=== PATIENT | male | born 1995 | race Caucasian/White ===

== ENCOUNTER 2020-01-16 21:52 | Emergency (ER) | payer MEDICAID, SELFPAY ==
[2020-01-16 21:59] VITALS: BP 142/76; PULSE 75; RESP 16; TEMP 36.3; O2SAT 97; BMI 30.2
--- NOTE | 2020-01-16 23:58 | ED.NECK ---
HPI - Neck Pain/Injury General Chief Complaint: Neck Pain/Injury Stated Complaint: Neck Pain Time Seen by Provider: 01/16/20 23:57 Source: patient Mode of arrival: ambulatory Limitations: no limitations History of Present Illness HPI Narrative: Left-sided neck stiffness only when try to turn his neck to the right, this started since this a.m., patient declined any trauma, pain is aggravated by trying to move the neck to the right side, relieved by sitting still and keeping his head straight, no other associated symptoms in particular headache, or photophobia, or fever., patient declined any trauma, patient had similar episode of this before was diagnosed with torticollis. Related Data Previous Rx's Medication Instructions Recorded cyclobenzaprine 10 mg PO TID PRN #10 tab 01/17/20 ibuprofen 800 mg PO Q8H PRN #20 tab 01/17/20 Allergies Allergy/AdvReac Type Severity Reaction Status Date / Time No Known Allergies Allergy Verified 01/16/20 22:03 Review of Systems Review of Systems: All other systems are reviewed and are negative Constitutional: Reports as per HPI and Reports no additional constitutional complaints Eyes: Reports as per HPI and Reports no additional eye complaints Reports system reviewed and no additional complaints, except as documented Cardiovascular: Reports as per HPI and Reports no additional cardiovascular complaints Respiratory: Reports as per HPI and Reports no additional respiratory complaints Gastrointestinal: Reports as per HPI and Reports no additional gastrointestinal complaints Genitourinary: Reports no additional female genitourinary complaints Musculoskeletal: Reports no additional musculoskeletal complaints Skin/Breast: Reports system reviewed and no additional complaints, except as docu Psychiatric: Reports no additional psychiatric complaints Endocrine: Reports no additional endocrine complaints Hematologic/Lymphatic: Reports no additional hematologic/lymphatic complaints Allergic/Immunologic: Reports no additional allergic/immunologic complaints Reports system reviewed and no additional complaints, except as documented and Reports Abnormal speech present [facility] Social History Social History Alcohol intake: unknown Smoking Status: Unknown if ever smoked Use of substances other than those prescribed or required for medical reasons: Unknown Advance Directives: No Advance Directives Information Provided: No Physical Exam Vital Signs: Vital Signs: Last Vital Signs Temp 97.4 F 01/16/20 21:59 Pulse 75 01/16/20 21:59 Resp 16 01/16/20 21:59 BP 142/76 H 01/16/20 21:59 Pulse Ox 97 01/16/20 21:59 Body Mass Index 30.2 Vital signs have been reviewed as normal and appeared to be correct. Blood pressure in the high range. Heart rate normal. Respiration rate normal. Temperature normal. Oxygen saturation normal. Appearance: Alert. Oriented X3. No acute distress. Head: Normal external exam. Normocephalic. Atraumatic. No Dale signs noted. No raccoon eyes noted Eyes: PERRLA. EOMI. Conjunctiva and sclera normal. Eyelids normal. ENT: EAC normal. TM's Normal. Pharynx normal. Uvula midline. Moist mucous membranes. No trismus noted. No drooling noted. No muffled voice noted. Neck: Normal inspection. Left sternal mastoid muscle spasm. FROM. No adenopathy. Thyroid Normal. No meningeal signs. No neck mass noted. CVS: Normal heart rate and rhythm. Heart sound normal. No murmurs noted. Pulses normal throughout. Respiratory: No respiratory distress. Painless inspiration. Breath sounds normal. No wheezes/rales/rhonchi noted. Chest nontender. No accessory muscle usage noted or decreased air movement noted. Abdomen: Soft and nontender. Bowel sounds normal in all 4 quadrants. No distention noted. No organomegaly noted. No visible injury noted. Back: No CVA tenderness. Full range of motion noted. Skin: Skin warm and dry. Normal skin color. Normal skin turgor. No rashes/lesions/lacerations noted. Extremities: No lower extremity edema. Extremities exhibit normal range of motion. Extremities nontender. Neuro: Oriented X 3. No motor deficit. No sensory deficit. Reflexes normal. MDM - Neck Pain/Injury [facility] Narrative Medical decision making narrative: Assessment and plan. 24-year-old male came in with left side neck spasm and unable to look to the right side, patient declined any recent injury, patient had a history of torticollis in the past. Patient having no symptoms or exam to suggest meningitis. Patient was given muscle relaxants and NSAIDs in the ED with partial improvement. Will discharge the patient with muscle relaxant, NSAIDs, rest, heating pad, follow-up with PCP. Discharge Plan Discharge Clinical Impression: Torticollis Patient Disposition: Home, Self-Care Instructions: Spasmodic Torticollis (ED) Prescriptions: New cyclobenzaprine 10 mg tablet 10 mg PO TID PRN (Reason: muscle spasm) Qty: 10 RF: 0 ibuprofen 800 mg tablet 800 mg PO Q8H PRN (Reason: pain) Qty: 20 RF: 0 Referrals: Physician,Unknown [Primary Care Provider] - 2 days
[2020-01-17] MEDS: oxyCODONE HCl Immed Release 5 MG TABLET PO (00:42)
[2020-01-17] MEDS: Ibuprofen 600 MG TABLET PO (00:42)
[2020-01-17] MEDS: diazePAM 5 MG TABLET PO (00:43)
== END 2020-01-17 01:26 | disposition home or self-care (01) ==
PROVIDERS: Emergency Provider Emergency Medicine
DX: M43.6 Torticollis (principal); M54.2 Cervicalgia; Z79.899 Other long term (current) drug therapy
CPT/HCPCS: 99283; 99284

== ENCOUNTER 2021-08-17 11:13 | Outpatient (REF) | payer MEDICAID, SELFPAY ==
[2021-08-17 11:46] LABS: COVID-19 Test Negative (Negative); IDNOW Serial# 16C4AD1C
== END 2021-08-17 11:14 | disposition home or self-care (01) ==
LOC: HO.LAB 11:13
PROVIDERS: Visit Provider Internal Medicine
DX: Z20.822 Contact with and (suspected) exposure to COVID-19 (principal)
CPT/HCPCS: 87635; C9803

== ENCOUNTER 2022-08-10 10:27 | Outpatient (REF) | payer MEDICAID, SELFPAY ==
--- NOTE | ~2022-08-10 | XR_ITS ---
EXAMINATION: XR CHEST CLINICAL INFORMATION: Cough x3 days COMPARISON: None available. TECHNIQUE: 2 views of the chest were obtained. FINDINGS: No significant abnormality is noted involving the heart, lungs, mediastinum, bony thorax or soft tissues. XR/XR chest 2V IMPRESSION: Unremarkable chest examination.
== END 2022-08-10 10:28 | disposition home or self-care (01) ==
LOC: HO.HHCX 10:27
PROVIDERS: Visit Provider Emergency Medicine
DX: R68.89 Other general symptoms and signs (principal)
CPT/HCPCS: 71046

== ENCOUNTER 2022-11-08 10:14 | Outpatient (REF) | payer MEDICAID, SELFPAY ==
--- NOTE | ~2022-11-08 | XR_ITS ---
EXAMINATION: XR LUMBOSACRAL SPINE CLINICAL INFORMATION: Neck pain. COMPARISON: None available. TECHNIQUE: Three views of the lumbosacral spine. FINDINGS: The vertebral bodies and posterior elements appear unremarkable. Mild disc space narrowing at L4-L5 and L5-S1. Vertebral alignment appears unremarkable. The paraspinal soft tissues appear unremarkable. XR/XR lumbar spine 2-3V IMPRESSION: Mild disc space narrowing at L4-L5 and L5-S1.
[2022-11-08 11:30] LABS: MANUAL DIFF FLAG NO
[2022-11-08 11:48] LABS: Basophils Percent Auto 0.4 % (0-2); Eosinophils Absolute Auto 0.1 X10*3/uL (0.0-0.4); Eosinophils Percent Auto 1.1 % (0-4); Hematocrit 43.8 % (42.0-52.0); Hemoglobin 14.2 g/dl (14.0-18.0); Imm Gran Abs Auto 0.02 X10*3/uL (0.00-0.03); Imm Gran Pct Auto 0.4 % (0.0-0.4); Lymphocytes Absolute Auto 1.9 X10*3/uL (1.2-4.9); Lymphocytes Percent Auto 34.6 % (20-40); Mean Corpuscular HGB Conc 32.4 g/dl (31.0-36.0); Mean Corpuscular Volume 83.4 fL (80.0-98.0); Mean Platelet Volume 12.4 fL (9.4-12.4); Monocytes Absolute Auto 0.4 X10*3/uL (0.1-1.2); Monocytes Percent Auto 8.1 % (2-11); Neutrophils Percent Auto 55.4 % (45-73); Platelet Count 176 X10*3/uL (160-400); Red Blood Count 5.25 X10*6/uL (4.60-5.80); Red Cell Distribution Width 12.6 % (11.0-16.0); White Blood Count 5.4 X10*3/uL (4.8-10.8)
[2022-11-08 12:06] LABS: Estimated Average Glucose 91 mg/dL; Hemoglobin A1c % 4.8 % (<6.0)
[2022-11-08 12:24] LABS: Alanine Aminotransferase 40 U/L (0-40); Albumin Level 4.4 g/dL (3.5-5.0); Alkaline Phosphatase 78 U/L (39-117); Anion Gap 11 (12-20); Aspartate Amino Transferase 24 U/L (5-37); Bilirubin Direct 0.2 mg/dL (0.0-0.5); Bilirubin Total 0.3 mg/dL (0.0-1.0); Blood Urea Nitrogen 17 mg/dL (9-16); Calcium 9.4 mg/dL (8.4-10.2); Carbon Dioxide 27 mmol/L (22-29); Chloride 108 mmol/L (96-108); Cholesterol 144 mg/dL (<200); Estimated Glomerular Filt Rate > 60; Glucose Random 83 mg/dL (60-115); HDL Cholesterol 40 mg/dL (>40); LDL Cholesterol Calculated 89 mg/dL (<100); Potassium 4.6 mmol/L (3.3-5.1); Sodium 141 mmol/L (135-145); Total Protein 7.1 g/dL (6.5-8.0); Triglycerides 75 mg/dL (<150)
[2022-11-08 12:41] LABS: TSH reflex Free T4 1.82 uIU/mL (0.32-4.0)
[2022-11-09 04:11] LABS: HIV AB/AG Nonreactive (Nonreactive); HIV Num 1 0.06 S/CO (0.00-0.99)
[2022-11-09 04:15] LABS: ~HepC Num1 0.07 S/CO (0.00-0.79); ~Hepatitis C Antibody Nonreactive (Nonreactive)
== END 2022-11-08 10:15 | disposition home or self-care (01) ==
LOC: HO.HHCL 10:14
PROVIDERS: Visit Provider Internal Medicine
DX: Z00.00 Encounter for general adult medical examination without abnormal findings (principal); F41.8 Other specified anxiety disorders
CPT/HCPCS: 36415; 72100; 80048; 80061; 80076; 83036; 84443; 85025; 86803; 87389

== ENCOUNTER 2023-01-12 12:56 | Outpatient (AMB) | payer MEDICAID, SELFPAY ==
--- NOTE | 2023-01-12 12:57 | A.OFFVIS_ITS ---
Intake Vital Signs 01/12/23 13:00 BP 126/68 Blood Pressure Location Lt radial Position Sitting Pulse 74 Pulse Source Pulse Oximeter Pulse Oximetry (%) 99 Oxygen Delivery Method Room Air Intake Visit Reasons: mat intake Intake Note: the patient presents for a mat intake Airplane Inspector Required: No Allergies No Known Allergies Allergy (Verified 01/12/23 13:01) Do you need a note to return to daycare/school/sports/work: No HPI mat intake HPI Details Pt presented as a referral from [facility] after a positive urine drug screen. Pt was positive for marijuana and as a requirement for his job he needs to complete rehab . Reports he works for [employer]. Only smokes to relieve anxiety Reports his use has been only on the weekends, denies any other substance use. 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 Pt is stably housed with dependable transportation. Reports he has a good support system. Has never needed addiction treatment, carries no BH diagnosis, has no BH pro viders, and has never been psychiatrically hospitalized. No SI/HI? or self injurious behaviour. NKA Pcp is through [facility] where he was last seen by his provider in September of this year. PMH only significant for seasonal asthma which is well controlled with a PRN albuterol inhaler. Denies legal history past or present of incarceration, probation, or pending cases. [facility] Social History Alcohol intake: unknown Review of Systems Const Reports as per HPI Physical Exam Vital Signs: Last Vital Signs Pulse 74 01/12/23 13:00 BP 126/68 01/12/23 13:00 Pulse Ox 99 01/12/23 13:00 Oxygen Delivery Method Room Air 01/12/23 13:00 Const General: cooperative and healthy appearing Resp Effort & Inspection: normal respiratory effort Skin General skin exam: no rashes or lesions noted Psych Appearance: grossly normal and well kempt Mental Status: mental status grossly normal Speech and movement: Normal speech and movement present Attitude: cooperative Thought process: Normal thought process present Assessment & Plan Assessment & Plan (1) Marijuana smoker in remission: Comment: Follow up with work provided substance use screening. No further visits needed at this time. Encouraged to call clinic if questions or concerns arise. Code(s): F12.21 - Cannabis dependence, in remission Coding Level of Care Code New Pt Level 4 (52149) Diagnoses Marijuana smoker in remission F12.21
[2023-01-12 13:00] VITALS: BP 126/68; PULSE 74; O2SAT 99
== END 2023-01-12 13:55 | disposition home or self-care (01) ==
PROVIDERS: Visit Provider Nurse Practitioner Family
DX: F12.21 Cannabis dependence, in remission (principal)
CPT/HCPCS: 99204

== ENCOUNTER → 2023-01-12 12:56 | Outpatient (BNVA) | payer OTHER, SELFPAY | PROVIDERS: Visit Provider Nurse Practitioner Psychiatric/Mental Health | DX: F12.21 Cannabis dependence, in remission (principal) | CPT/HCPCS: 99202 ==

== ENCOUNTER 2024-12-08 17:45 | Emergency (ER) | payer BC, SELFPAY ==
--- NOTE | ~2024-12-08 | XR_ITS ---
CLINICAL HISTORY: Low back pain status post heavy lifting 3 views lumbar spine Comparison: CR/NV/SR - XR LUMBAR SPINE 2-3 VIEWS - 11/08/22 11:03 EDT Findings: Loss of normal lumbar lordosis. No acute fractures or dislocation. No significant degenerative change. IMPRESSION: No acute findings. This document has been electronically signed by: Nathan Medrano MD on 12/08/2024 18:44:37
--- NOTE | 2024-12-08 17:48 | ED_ITS ---
HPI - General Adult General Chief complaint: Back Pain/Injury Stated complaint: lower back pain Time Seen by Provider: 12/08/24 18:36 Source: patient Mode of arrival: ambulatory Limitations: no limitations History of Present Illness ED Provider: Carolann French PA-C HPI narrative: This is a 29 year old male that presents for evaluation of low back pain. 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 He feels relief when he is laying down and has increased pain with standing or lifting his legs. He is still getting the shock feeling down his legs on and off. He denies any numbness or tingling in his groin or legs. He denies any difficulty urinating or passing stool. He denies weakness in his legs. He does not return to work until Tuesday because he is off for the holiday . Related Data Previous Rx's ?Medication ?Instructions ?Recorded cyclobenzaprine 10 mg tablet 10 mg PO TID PRN muscle s pasm #10 01/17/20 tabs ibuprofen 800 mg tablet 800 mg PO Q8H PRN pain #20 t abs 01/17/20 cyclobenzaprine 5 mg tablet 5 mg PO TID PRN low back p ain 7 12/08/24 days #21 tabs naproxen 500 mg tablet 500 mg PO BID 7 days #14 tab s 12/08/24 Allergies Allergy/AdvReac Type Severity Reaction Status Date / Time No Known Allergies Allergy Verified 12/08/24 17:50 Review of Systems Constitutional: Constitutional: Reports as per HPI Eyes: Eyes: Reports as per HPI ENT: Reports as per HPI Cardiovascular: Cardiovascular: Reports as per HPI Respiratory: Respiratory: Reports as per HPI Gastrointestinal: Gastrointestinal: Reports as per HPI Genitourinary: Genitourinary: Reports as per HPI Musculoskeletal: Musculoskeletal: Reports as per HPI Integumentary/Breasts: Skin/Breast: Reports as per HPI Neurologic: Reports as per HPI Psychiatric: Psychiatric: Reports as per HPI Endocrine: Endocrine: Reports as per HPI Hematologic/Lymphatic: Hematologic/Lymphatic: Reports as per HPI Allergic/Immunologic: Allergic/Immunologic: Reports as per HPI [facility] Past Medical History Attestation statement: The following information was validated with the patient. Source: old records reviewed and nursing notes reviewed Social History Social History Alcohol intake: unknown Advance Directives: No Advance Directives Information Provided: Yes Do you have a plan to hurt others: No Plan Physical Exam ED Vital Signs: Vital Signs - 24 hr 12/08/24 17:49 12/08/24 19:17 Temperature 97.6 F 97.6 F Pulse Rate 72 72 Respiratory Rate 18 18 Blood Pressure 132/59 L 132/59 L Pulse Oximetry 99 99 Oxygen Delivery Method Room Air Room Air BMI result Body Mass Index 28.3 Const General: cooperative, no acute distress, alert and awake Nutritional Appearance: well nourished Orientation/consciousness: patient oriented x3 HENMT Head: Yes normal to inspection and Yes atraumatic Ears: hearing grossly normal bilaterally and external ears normal General nose exam: Normal external nose present, no nasal discharge noted and no epistaxis Face and sinus: Yes normal facial exam, No abrasion and No laceration Mouth: no drooling and no muffled voice Eyes General: appearance normal, both eyes and all related structures Periorbital: periorbital findings normal Eyelids: Yes eyelids normal Conjunctivae: conjunctivae normal Pupils: Equal, round and reactive pupils present EOM: EOMs intact bilaterally Neck Neck: Yes normal visual inspection and Yes full ROM Resp Effort & Inspection: normal respiratory effort and able to speak in complete sentences Back/Spine/Pelvis Back: No ecchymosis Skin General skin exam: no rashes or lesions noted Neuro General: patient oriented x3, gait normal, tone normal and moves all extremities Cranial nerves: Yes Equal, round and reactive pupils present Cognition (Neuro): normal cognition Gait exam (Neuro): Normal gait present Motor exam (neuro): 5/5 motor strength present throughout and Normal motor muscle tone present throughout Deep tendon reflexes (DTR's): Right patellar reflex intensity grade: 2+ and Left patellar reflex intensity grade: 2+ Extrem General: Yes normal to inspection, Yes full ROM and Yes capillary refill normal Right lower extremity: full ROM Left lower extremity: full ROM Psych Appearance: grossly normal Mental Status: mental status grossly normal Affect: normal affect Attitude: cooperative Thought process: Normal thought process present Thought content: Normal thought content present Insight: Good insight present (Psych) Course Course Course Narrative: This is a Rapid Medical Examination (RME) performed by Carolyn Tyler PA-C in triage. Full HPI, ROS, assessment and treatment plan per primary provider in the Main ED. Hx: 29 yo M here for eval of low back pain s/p heavy lifting yesterday. no back pain red flags. Plan: xrs Medications Administered Discontinued Medications Generic Name Dose Route Start Last Admin Trade Name Jonnathan PRN Reason Stop Dose Admin Cyclobenzaprine HCl 5 mg 12/08/24 18:57 12/08/24 19:13 Cyclobenzaprine Hcl 5 Mg Tablet PO 12/08/24 18:58 5 mg ONCE ONE Administration Ketorolac Tromethamine 15 mg 12/08/24 18:57 12/08/24 19:13 Ketorolac Tromethamine 15 Mg/Ml Vial IM 12/08/24 18:58 15 mg ONCE ONE Administration Medical Decision Making Medical Decision Making MDM Narrative: Patient is a 29 year old assigned male at with no reported medical history presenting to the emergency department today with low back pain. Patient's physical exam was as noted in the physical exam portion of this note. Patient's lumbar x-ray, ordered by the provider in triage, showed no acute process. I explained my physical exam findings as well as all test results to the patient . I answered all questions asked by the patient. I stressed the importance of the patient taking his medication as directed (either prescribed or as the over the counter packaging recommends). I stressed the importance of the patient following up with his primary care provider. I stressed the importance of the patient returning to the emergency department immediately if his symptoms were to worsen or if he were to develop any dizziness, shortness of breath, difficulty breathing, chest pain, blurry vision, loss of vision, nausea, vomiting, abdominal pain, fever, chills, back pain, or any other complaints. Patient verbalized agreement and understanding with this treatment plan and discharge. Differential Diagnosis Differential Diagnoses: The differential diagnosis associated with the presentation includes Lumbar strain Low back pain Admission/Observation Consideration of admission/observation: Escalation of care including admission/observation considered Patient would have been admitted to the hospital had his work up had any findings where hospital admission was appropriate and his clinical presentation warranted hospital admission. Independent Interpretation I performed an independent interpretation of an: Plain X-Ray Interpretation: My interpretation is in agreement with the radiologist's impression of this imaging study. Reason for Exam: Low back pain status post heavy lifting CLINICAL HISTORY: Low back pain status post heavy lifting 3 views lumbar spine Comparison: CR/WI/SR - XR LUMBAR SPINE 2-3 VIEWS - 11/08/22 11:03 EDT Findings: Loss of normal lumbar lordosis. No acute fractures or dislocation. No significant degenerative change. IMPRESSION: No acute findings. This document has been electronically signed by: Nathan Medrano MD on 12/08/2024 18:44:37 Dictated By: Nathan Medrano MD Signed By: Electronically signed by Nathan Medrano MD 12/08/24 0864 Radiology Impression Discussion of test interpretation with radiology: I have reviewed the radiologist's reading. Prescription Management I considered prescription management with: Pain Medication (patient prescribed pain medication) Discharge Plan Discharge Clinical Impression: Strain of lumbar region Patient Disposition: Home, Self-Care Instructions: Back Pain (ED) Additional Instructions: Your x-ray of the lumbar spine showed no acute process. Your pain is likely secondary to a strain / sprain. IF you are prescribed home medications and/or you are taking over the counter medications at home - it is very important you continue to do so as prescribed / directed unless told otherwise. Follow up with a primary care provider. Return to the emergency department immediately if your symptoms worsen or if you develop any numbness, tingling, dizziness, shortness of breath, difficulty breathing, chest pain, blurry vision, loss of vision, nausea, vomiting, abdominal pain, fever, chills, back pain, or any other complaints. If you do not have a primary care provider - call any of the below numbers to establish and follow up with a primary care provider. [facility] Primary Care ([place]) [phone] [place] [address] [place], [address] [facility] Primary Care ([address] [place]) [phone] [address] [facility], [address] [place], [address] [facility] Primary Care ([address] [place]) [phone] [place] [address], [address] [place], [address] [facility] Primary Care ([place]) [phone] [place] [address] [address] [place], [address] [facility] Family Medicine [phone] [address] [facility], [address] Please see the information below about our Patient Portal. If you are not yet enrolled in the [facility] Patient Portal, you will receive an enrollment email invitation following your visit to any [facility] setting. You may also self-enroll in the Patient Portal by visiting our website: [email or web address] The following information is required to access the Patient Portal: - Your [facility] Medical Record Number - Your personal home email address (must match what is in your electronic medical record, Registration staff can assist with this) - Name - Date of Capabilities of the Patient Portal: - Message some providers - View upcoming appointments - Access your health summary, medical history, and visit history - View current conditions and allergies - View procedure and lab results - View your medications, including guidelines, side effects, and precautions - Complete pre-appointment questionnaires requested by your provider - Ready summary reports of your office visits and procedures To access the Patient Portal Mobile [employer], follow these directions: - Search [place] in the [employer] Store or [employer] Store - Download the [employer] - Search for [facility] - Enter your login/password Prescriptions: New cyclobenzaprine 5 mg tablet 5 mg PO TID PRN (Reason: low back pain) 7 Days Qty: 21 0RF naproxen 500 mg tablet 500 mg PO BID 7 Days Qty: 14 0RF No Action cyclobenzaprine 10 mg tablet 10 mg PO TID PRN (Reason: muscle spasm) Qty: 10 0RF ibuprofen 800 mg tablet 800 mg PO Q8H PRN (Reason: pain) Qty: 20 0RF Interventions: ED Discharge Assessment Last Done: 12/08/24 19:17 Discharge Date/Time: 12/08/24 19:33 Print Language: Syriac
[2024-12-08 17:49] VITALS: BP 132/59; PULSE 72; RESP 18; TEMP 36.4; O2SAT 99; BMI 28.3
--- OUTSIDE RECORDS SUMMARY | 2024-12-08 18:42 | XMS_ITS | Encounter Summary ---
Author Organization [employer] Address [address] [place] [address] Care Team Providers Care Microbiology Instructor Name Role Phone Kylah Wadsworth MD Primary Care Provide r Reason for Visit * Reason Comments Med Refill Encounter Details Date Type Department Care Team ([facility] st Contact Info) Description 08/24/2022 Refill [facility] [address] [place], [place] [phone] Adalberto Montoya MD [address] [place] [address] Social History Tobacco Use Types Packs/Day Years Used Date Smoking Tobacco: Never Passive Smoke Exposure: Never Smokeless Tobacco: Never Sex and Gender Information Value Date Recorded Sex Assigned at Male 12/28/2021 10:34 AM EDT Legal Sex Male 10:34 AM EDT Gender Identity Male 12/28/2021 10:34 AM EDT Sexual Orientation Don't know 12/28/2021 10 :34 AM EDT COVID-19 Exposure Response Date Recorded In the last 10 days, have yo u been in contact with someone who was confirmed or suspected to have Coronavirus/COVID-19? No / Unsure 08/10/2022 8:50 AM EDT documented as of this encounter Plan of Treatment Not on file documented as of this encounter Visit Diagnoses Not on filedocumented in this encounter Care Teams Microbiology Instructor Relationship Specialty Start Date End Date Kylah Wadsworth MD [address], [place] [phone] PCP - General Family Medicine 11/29/17 documented as of this encounter
--- OUTSIDE RECORDS SUMMARY | 2024-12-08 18:42 | XMS_ITS | Clinical Summary ---
Author Organization [employer] Address [address] [place] [address] Care Team Providers Care Systems Support Specialist Name Role Phone Kylah Wadsworth MD Primary Care Provide r Allergies No known active allergies Medications acetaminophen (Tylenol) 500 MG tablet Take 2 tablets (1,000 mg) by mouth every 6 (six) hours if needed for moderate pain or fever for up to 25 doses. 50 tablet 3 Active Spacer/Aero-Hol ding Chambers (OptiChamber Anisha) misc 1 each every 4 (four) hours if needed (asthma). 1 each 3 Active hydrOXYzine HCl (Atarax) 25 MG tabletIndicatio ns:Anxiety with depression Take 1 tablet (25 mg) by mouth if needed at bedtime for itching. 30 tablet 3 Active Additional Information Patient not taking.Reported on 09/25/2024 pseudoephedrine (Sudafed) 30 MG tablet Take 1 tablet (30 mg) by mouth every 4 (four) hours if needed for congestion for up to 10 days. 30 tablet 3 Active Additional Information Patient not taking.Reported on 09/25/2024 sodium chloride (Sweetwater) 0.65 % nasal spray Administer 1 spray into each nostril if needed for congestion. 15 mL 1 5 03/12/19 26 Active Additional Information Patient not taking.Reported on 09/25/2024 ondansetron (Zofran) 4 MG tabletIndicatio ns:Nausea Take 1 tablet (4 mg) by mouth every 8 (eight) hours if needed for nausea or vomiting for up to 10 doses. 10 tablet 5 Active Additional Information Patient not taking.Reported on 09/25/2024 cetirizine (ZyrTEC) 10 MG tablet TAKE 1 TABLET BY MOUTH EVERY DAY 90 tablet 1 5 Active Additional Information Patient not taking.Reported on 09/25/2024 amitriptyline (Elavil) 10 MG tablet Take 1 tablet (10 mg) by mouth at bedtime. 30 tablet 5 Active Additional Information Patient not taking.Reported on 09/25/2024 SUMAtriptan (Imitrex) 25 MG tablet Take 1 tablet (25 mg) by mouth 1 (one) time if needed for migraine. May repeat dose once in 2 hours if no relief. Do not exceed 2 doses in 24 hours. 9 tablet Active Additional Information Patient not taking.Reported on 09/25/2024 albuterol 108 (90 Base) MCG/ACT inhaler Inhale 2 puffs every 6 (six) hours if needed for wheezing or shortness of breath. 18 g 1 5 09/26/19 26 Active Active Problems Problem Noted Date Diagnosed Date Torticollis 09/25/2024 Assessment & Plan (09/25/2024 10:08 PM EDT): Chem 2022 -Normal renal function Pt w torticollis of right side of neck ,normal neuro exam -warm compresses advised -tylenol prn and ibuprofen 600 mg Q8 h PRN for moderate to severe pain for a week -prescribed low dose muscle relaxant for few days -prior bedtime-explained to avoid ETOH,and to not drive or use heavy machinery after taking medication -referred to PT today given recurrence of symptoms, no indication for image from hx and exam at this time Left foot pain 09/25/2024 Assessment & Plan (09/25/2024 10:08 PM EDT): Left ankle pain pain in left foot w specific movements -specially with active dorsiflexion ,no swelling no erythema no increase skin temp -referred to PT today , if no improvement w it will need to consider to get image of foot -pt to f w PCP Cough in adult 03/12/2024 Assessment & Plan (03/12/2024 11:12 AM EST): -Negative influenza and COVID test -Supportive care recommended Chronic bilateral low back pain without sciatica 11/08/2022 Anxiety with depression 11/08/2022 Assessment & Plan (11/08/2022 10:03 AM EDT): Patient declines therapist for now Patient is open to try medications RTC 4 weeks televisit Health care maintenance 11/08/2022 Mild intermittent asthma with acute exacerbation 08/10/2022 Assessment & Plan (03/12/2024 11:07 AM EST): -He uses his asthma pump PRN but he rarely needs it. Obesity (BMI 30.0-34.9) 11/29/2017 Encounters Date Type Department Care Team Description 09/25/2024 10:40 AM EDT Office Visit [facility] [place] [address] Kylah Kraft MD Left foot pain (Primary Dx); Neck pain; Torticollis 09/25/2024 Travel from Last 3 Months Social History Tobacco Use Types Packs/Day Years Used Date Smoking Tobacco: Never Passive Smoke Exposure: Never Smokeless Tobacco: Never Tobacco Cessation:Counseling Given: Not Answered Depression Answer Date Recorded Patient Health Questionnaire-9 Score 15 11/08/2022 Housing Stability Answer Date Recorded What is your housing situation today? I have shaun martin 12/08/[address] you li ve. Do you have problems with any of the following? Pests such as bugs, ants, or mice 12/08/2022 Food Insecurity Answer Date Recorded Within the past 12 months, y ou worried that your food would run out before you got money to buy more: Never True 01/03/2023 Within the past 12 months,th e food you bought just didn't last and you didn't have enough money to get more: Never True 07/2022 Transportation Answer Date Recorded In the past 12 months, has l ack of transportation kept you from medical appts, meetings, work or from getting things needed for daily living? No 01/03/2023 Utilities Answer Date Recorded In the past 12 months, has t he electric, gas, oil or water company threatened to shut off services in your home? No 01/03/2023 Depression Answer Date Recorded Patient Health Questionnaire-2 Score 3 11/08/2022 Sex and Gender Information Value Date Recorded Sex Assigned at Male 12/28/2021 10:34 AM EDT Legal Sex Male 10:34 AM EDT Gender Identity Male 12/28/2021 10:34 AM EDT Sexual Orientation Don't know 12/28/2021 10 :34 AM EDT Last Filed Vital Signs Vital Sign Reading Time Taken Comments Blood Pressure 118/66 09/25/2024 10:11 AM EDT Pulse 54 09/25/2024 10:11 AM EDT Temperature 36.2 C (97.1 F) 09/25/2024 10:11 AM EDT Respiratory Rate 20 09/25/2024 10:11 AM EDT Oxygen Saturation 99% 09/25/2024 10:11 AM EDT Inhaled Oxygen Concentration - - Weight 83.5 kg (184 lb) 09/25/2024 10:11 AM EDT Height 167.6 cm (5' 6 ) 09/25/2024 10:11 AM EDT Body Mass Index 29.7 09/25/2024 10:11 AM EDT Plan of Treatment Health Maintenance Due Date Last Done Comments Disability Screening 1997 Alcohol/Substance Use Screening 2009 Family Planning (PISQ) 2012 HPV Vaccines (1 - Male 3-dos e series) 2012 DTaP/Tdap/Td Vaccines (1 - Tdap) 2016 Hepatitis B Vaccines (1 of 3 - 19+ 3-dose series) 2016 Pneumococcal Vaccine: Pediatrics (0 to 5 Years) and At-Risk Patients (6 to 49) Years (1 of 2 - PCV) 2016 Depression Monitoring 05/09/2023 11/08/2022 , 11/08/2022 SDOH Screening 10/27/2023 10/26/2022 COVID-19 Vaccine (1 - 2023-2 5 season) 2024 Influenza Vaccine (#1) 2024 Tobacco Screening 09/25/2025 09/25/2024 Zoster Vaccines (1 of 2) 09/16/2047 RSV Patients and Patients Aged 60 years or older (1 - 1-dose 75+ series) 2072 HIV Screening Completed 11/08/2022 Hepatitis C Screening Completed 11/08/2022 HIB Vaccines Aged Out No longer eligi ble based on patient's age to complete this topic Hepatitis A Vaccines Aged Out No long er eligible based on patient's age to complete this topic IPV Vaccines Aged Out No longer eligi ble based on patient's age to complete this topic Meningococcal B Vaccine Aged Out No l onger eligible based on patient's age to complete this topic Meningococcal Vaccine Aged Out No olivier kevin eligible based on patient's age to complete this topic RSV under 20 months Aged Out No longe r eligible based on patient's age to complete this topic Rotavirus Vaccines Aged Out No longer eligible based on patient's age to complete this topic Procedures Procedure Name Priority Date/Time Associated Diagnosis Comments HEPATITIS C AB W/REFL TO HCV RNA, QN, PCR Routine 11/08/2022 10:23 AM EDT Health care maintenance HIV ANTIBODY/ANTIGEN ([place] [facility]) Routine 11/08/2022 10:23 AM EDT from Last 3 Months or Most Recently Relevant to Health Maintenance Results * HIV Ab/Ag ([place] [facility]) (11/08/2022 10:23 AM EDT) Pathologist [facility] HIV AB/AG Nonreactive Nonreactive [facility] Comment:HIV-1 p24 Ag and/or HIV-1/HIV-2 Ab not detected.A test result that is nonreactive does not exclude thepossibility of exposure to or infection with HIV-1 and/orHIV-2. Nonreactive results in this assay for individualswith prior exposure to HIV-1 and/or HIV-2 may be due toantigen and antibody levels that are below the limit ofdetection of this assay.The localbacon HIV Ag/Ab Combo assay result andsupplemental assay results should be interpreted inconjunction with the patient's clinical presentation,history and other laboratory results. If the results areinconsistent with clinical evidence, additional testing issuggested to confirm the result. 11/08/2022 10:2 3 AM EDT 11/08/2022 11:24 AM EDT us Kylah Dutta MD LAB BLOOD ORDERABLES Final Result Performing Organization Address [facility] Co de Phone Number [facility] [address] [place] [phone] * Hepatitis C Antibody with Reflex to HCV, RNA, Quantitative, Real-Time PCR (11/08/2022 10:23 AM EDT) Hepatitis C Antibody Nonreactive Nonreactive [facility] Comment:Antibodies to HCV no t detected; does not exclude early acuteHCV infection. Blood Venous blood specimen / Unknown 11/08/2022 10:23 AM EDT 11/08/2022 11:24 AM EDT us Kylah Dutta MD LAB BLOOD ORDERABLES Final Result Performing Organization Address [facility] Co de Phone Number [facility] [address] [place] [phone] from Last 3 Months or Most Recently Relevant to Health Maintenance Insurance [facility] [employer] HMO Care Teams Systems Support Specialist Relationship Specialty Start Date End Date Kylah Wadsworth MD [address] [place] [address] PCP - General Family Medicine 11/29/17
[2024-12-08 19:17] VITALS: BP 132/59; PULSE 72; RESP 18; TEMP 36.4; O2SAT 99
== END 2024-12-08 19:33 | disposition home or self-care (01) ==
PROVIDERS: Emergency Provider Emergency Medicine
DX: S39.012A Strain of muscle, fascia and tendon of lower back, initial encounter (principal); X50.9XXA Other and unspecified overexertion or strenuous movements or postures, initial encounter; Y93.89 Activity, other specified; Y92.89 Other specified places as the place of occurrence of the external cause; Y99.0 Civilian activity done for income or pay
CPT/HCPCS: 72100; 96372; 99283; 99284; J1885

== ENCOUNTER → 2024-12-08 17:50 | Outpatient (BNV) | payer BC, SELFPAY | PROVIDERS: Visit Provider Radiology Diagnostic Radiology | DX: M54.50 Low back pain, unspecified (principal) | CPT/HCPCS: 72100 ==